=== PATIENT | female | born 1930 | race Caucasian/White ===

== ENCOUNTER 2017-07-17 11:44 | Day surgery (SDC) | payer MEDICARE, OTHER ==
[~2017-07-17] VITALS: Ht 157.5 cm; Wt 44.6 kg
[2017-07-17] VITALS (8 sets, daily range): BP systolic 114–141; BP diastolic 62–85; PULSE 61–94; RESP 15–16; TEMP 97.8–98; O2SAT 89–98
[2017-07-17] MEDS ORDERED: CHLORHEXIDINE GLUCONATE 2 % 1 PACK (2 CLOTHS) TOPICAL SCH (12:45)
[2017-07-17] MEDS ORDERED: MUPIROCIN 2% OINT 1 APPLIC/GM SYR NASAL SCH (12:45)
[2017-07-17] MEDS ORDERED: METOPROLOL TARTRATE 25 MG TAB PO PRN (12:45)
[2017-07-17] MEDS ORDERED: CHLORHEXIDINE GLUCONATE 2 % 1 PACK (2 CLOTHS) TOPICAL PRN (12:45)
[2017-07-17] MEDS ORDERED: POVIDONE IODINE 5% (ANTISEPSIS KIT) 4 APPLICATIONS EACH NARE PRN (12:45)
[2017-07-17] MEDS ORDERED: VANCOMYCIN 1000 MG/NS 250 ML IV SCH ×2 (12:45)
[2017-07-17] MEDS ORDERED: POVIDONE IODINE 5% (ANTISEPSIS KIT) 4 APPLICATIONS EACH NARE SCH (12:45)
[2017-07-17] MEDS ORDERED: LACTATED RINGER'S 1000 ML IV PRN (12:45)
[2017-07-17] MEDS ORDERED: SODIUM CHLORID 0.9% 500 ML IV PRN (12:45)
[2017-07-17] MEDS ORDERED: NS 1000 ML IV SCH (12:45)
[2017-07-17] MEDS ORDERED: NO Heparin, Lovenox, Coumadin at least 12 hours prior to procedure. PRN (12:45)
[2017-07-17] MEDS ORDERED: INSULIN HUMAN REGULAR 1,000 UNITS/10 ML VIAL SQ PRN (12:45)
[2017-07-17] MEDS ORDERED: ASPI325T PO (12:52)
[2017-07-17] MEDS ORDERED: METO25TA6 PO (12:52)
[2017-07-17] MEDS ORDERED: LEVO25TA4 PO (12:52)
[2017-07-17] MEDS ORDERED: OMEP20TA PO (12:52)
[2017-07-17] MEDS ORDERED: LISI2.5T3 PO (12:52)
[2017-07-17] MEDS ORDERED: RANI150T PO (12:52)
[2017-07-17 13:20] LABS: AUTOMATED NEUTROPHIL # 3.5 TH/MM3 (1.8-7.7); BASOPHIL % 0.7 % (0.0-2.0); EOSINOPHIL # 0.3 TH/MM3 (0-0.4); EOSINOPHIL % 3.9 % (0.0-4.0); HEMATOCRIT 35.5 % (35.0-46.0); HEMO FLAGS DIFF FINAL; LYMPHOCYTE # 2.4 TH/MM3 (1.0-4.8); MEAN CELL VOLUME 100.4 FL (80.0-100.0); MEAN CORPUSCULAR HEMOGLOBIN 32.9 PG (27.0-34.0); MEAN CORPUSCULAR HGB CONC 32.7 % (32.0-36.0); MONO % 9.2 % (0.0-8.0); NEUT % 51.2 % (16.0-70.0); PLATELET COUNT 167 TH/MM3 (150-450); RED BLOOD COUNT 3.54 MIL/MM3 (4.00-5.30); RED CELL DISTRIBUTION WIDTH 14.2 % (11.6-17.2); WHITE BLOOD COUNT 6.9 TH/MM3 (4.0-11.0)
[2017-07-17 13:31] LABS: APTT (PATIENT) 25.9 SEC (24.3-30.1); PROTHROMBIN TIME - PATIENT 11.2 SEC (9.8-11.6)
[2017-07-17 13:42] LABS: BICARBONATE 23.9 MEQ/L (21.0-32.0); POTASSIUM 5.1 MEQ/L (3.5-5.1)
[2017-07-17] MEDS ORDERED: MIDAZOLAM HCL 2 MG/2 ML VIAL ONE (13:50)
[2017-07-17] MEDS ORDERED: PROPOFOL 200 MG/20 ML AMP ONE (13:50)
[2017-07-17] MEDS ORDERED: LIDOCAINE HCL 2% 50 ML VIAL ONE (13:58)
[2017-07-17] MEDS ORDERED: LIDOCAINE HCL 2% 100 MG/5 ML SYRINGE ONE (14:00)
[2017-07-17] MEDS ORDERED: PHENYLEPHRINE HCL 10 MG/ML VIAL ONE (14:32)
--- NOTE | 2017-07-17 15:10 | CATHPROC ---
[facility] HIS Report Study Information Study Number Admission Scheduled Start Study Start [id number] Jul 17 2017 11:44AM 07/17/2017 Jul 17 2017 1:41PM [place] Service Cardiac Pacer/ICD Admit Source Facility Department Other [facility] Physician and Clinical Staff Initial MD Gates, Mckinley Technical Account Representative Esther Amaro RCIS Other Anesthesia, CENTRIFUGAL SCREEN TENDER Recorder Radha Van,RN Scrub Alejo Miller,RT(R) Procedures Performed Procedure Location (Site) Vessel Name Lead Insertion Venogram Subclav. Vein (Lft Subclavian Vein Equipment Time Hand Turner Description Size Mfg Part Number Used/Scraped DEFIBRILLATOR, IMPERIA 7 VR-T 14:46 BIOTRONIK [id number] Used DX MRI 14:31 BIOTRONIK LEAD, PLEXA PRO-MRI DF 65/15 [id number] Used INTRODUCER SET, [id number] 14:24 [employer] FR 5 Used MICROPUNCTURE *[id number] 13:47 MEDLINE [employer] SUTURE, STRIP PLUS 1/2" * Used *[id number] 13:47 MEDLINE PACER ADHESIVE, MASTISOL 2/3CC 2/3CC 0523-48 Used 13:47 MEDLINE PACER GILL, LIMB * 2530 *[id number] Used [id number] 13:47 MEDLINE PACER PACK, PACER CUSTOM * Used *[id number] 13:47 MEDLINE PACER PEN, SKIN DUAL W/ RULER * Used *[id number] 14:28 [facility] [employer] PACER SAFE SHEATH, FR8, 13CM FR 8 [id number] Used 14:19 [employer] OMNIPAQUE, 350 MG, 50ML 50ML [id number] Used [id number] *[id number] SUTURE, 3-0 VICRYL [SH] ([id number]) SUTURE, 3-0 VICRYL [SH] ([id number]) SUTURE, 4-0 MONOCRYL [PS2] (Y496G) [id number] 13:47 [facility],WARM AIR CCL * Used *[id number] [facility], ELECTROSURGICAL 13:47 * [id number] *[id number] Used SURGICAL GROUNDING ORANGE [id number] 13:47 [employer] [facility]. / * Used *75842 Equipment Model, Serial, Lot Number and Expiration Data Description Model Number Serial Number Lot Number Expiration Date DEFIBRILLATOR, IMPERIA 7 VR-T [id number] 05-01-2018 DX MRI LEAD, PLEXA PRO-MRI DF 65/15 [id number] 07-01-2019 History: Allergies Allergy Reaction Penicillins Sulfa (Sulfonamide Antibiotics) tetanus toxoid, adsorbed History: Risk Factors Hypertension Previous Heart Failure Yes Yes Labs Hgb (g/dl) Hct (%) RBC (MIL/MM3) WBC (l/cumm) Platelets (thousands) 11.60-17.00 35.00-51.00 4.00-5.90 4.00-11.00 150.00-450.00 11.0 35 3.5 6.9 167 Glucose (mg/dl) BUN (mg/dl) Creatinine (mg/dl) BUN:Creatinine (1:x) 74.00-106.00 7.00-18.00 0.50-1.30 10.00-20.00 82 20 0.9 22.2 Na (meq/l) K (meq/l) 136.00-145.00 3.50-5.10 140 5.1 INR (PTT:PT) 0.90-1.10 1 Medication Medication Total Dose (Bolus/Oral) Medication Total Dosage/Unit 2% XYLOCAINE 50 mL Medications (Bolus/Oral) Medication Time Given Dosage/Unit Administered By Reason 2% XYLOCAINE 07/17/2017 2:18:00 PM 50 mL Anesthesia, CENTRIFUGAL SCREEN TENDER 50 mL 2% XYLOCAINE given by Anesthesia, CENTRIFUGAL SCREEN TENDER in Left upper chest via Subcutaneous. Ordered by Mckinley Gates. Medication (Drip) Medication Time Given Dosage/Unit Concentration/Unit Diluent (ml) Solution VANCOMYCIN DRIP 07/17/2017 2:00:00 PM 1 g 1 g VANCOMYCIN DRIP given by Anesthesia, CENTRIFUGAL SCREEN TENDER via Peripheral IV. Ordered by Mckinley Gates. Reason: As per physicians verbal order. Initial Case Assessment Cardiovascular HR Rhythm NIBP Chest Pain 80 sr 126/60 0 Edema Present Skin color Skin None Normal Warm Dry Circulatory - Right Pulses Radial 3 Scale (0,1,2,3,4,d) Circulatory - Left Pulses Radial 3 Scale (0,1,2,3,4,d) Circulatory - Lower Extremities Color Lower Right Color Lower Left Normal Normal Neurological State Oriented to time-place- Alert Moves all extremities person Respiration - General Respiration Rate SpO2 (%) O2 (lpm) (B/min) 20 97 6 Chronological Log Time Study Chronological Log 13:41:03 Patient arrived via Bed. 13:41:04 Patient Name, D.O.B, / Armband Verified By R.N. 13:41:04 Consent signed by the physician and the patient and verified by the [facility] staff. 13:41:05 Pre-op and post- op instructions given; patient acknowledges understanding of instructions. 13:41:06 Verbal Stimulation=2 Physical Stimulation=2 Airway=2 Respiration=2 TOTAL=8. (0=absent, 1=li mited, 2=present) 13:43:18 Anesthesia at bedside. Assumes care of patient. 13:43:20 Patient has been NPO for More than 6Hrs. 13:43:21 Skin Breakdown- none per pt 13:43:21 Patient Warmer Placed on the Table. 13:43:22 Disposable Defibrillator Pads Placed On Patient. 13:43:22 Roger Prominences Protected 13:43:24 A # 20 IV was noted in the Antecubital (left). Grade = 0 0.9 ns kvo 13:43:25 A # 20 IV was noted in the Antecubital (right). Grade = 0 0.9ns kvo 13:43:25 History and physical on the chart or being dictated. 1 g VANCOMYCIN DRIP given by Anesthesia, CENTRIFUGAL SCREEN TENDER via Peripheral IV. Ordered by Mckinley Gates. Reaso n: As per 14:00:00 physicians verbal order. 14:00:00 2% CHLORHEXIDINE GLUCONATE WASH AND NASAL SWIPE DONE PRIOR TO PROCEDURE. 14:00:00 Bovie ground pad applied to: right thigh 14:01:52 Upper Chest Prepped Times Two. 14:03:10 Reference ECG taken Assessment: Initial Case, HR=80 BPM, Rhythm=sr, QWCC=798/60 mmhg, Chest Pain=0, Edema=None, Col or=Normal, Skin = Warm, Dry Right Pulses: Radial=3 Left Pulses: Radial=3 14:03:15 Lower Right Extremities: Color=Normal Lower Left Extremities: Color=Normal Neurological: State=Alert, Ox3, CASTANEDA Respiration: Resp=20 B/min, SpO2=97 %, O2=6 lpm 14:08:17 paged First Sponge And Instrument Count Done by Esther Amaro RCIS. 14:09:27 Hypo's: 3 hypo's, Sponges: 30 sponges, Bovie/scratch: 2 bovie/scratch Sutures: 5, Blades: 2, Instruments: 26, Syveck Patches: 0 14:13:13 MD arrived. Time Out. Correct patient, procedure, procedure equipment, site and side verified with physicia n present. Time 14:16:00 concurred by MD, individual staff and CENTRIFUGAL SCREEN TENDER. Time Out #2 - Consents verified, patient in correct position, all results are labled and displa yed, safety precautions 14:16:37 taken, antibiotics administered. Time out concurred by MD, individual staff and CENTRIFUGAL SCREEN TENDER in procedu re 14:16:52 Case Start 14:18:00 50 mL 2% XYLOCAINE given by Anesthesia, CENTRIFUGAL SCREEN TENDER in Left upper chest via Subcutaneous. Ordered by Mckinley Gates. 14:18:59 The Subclav. Vein (Lft was manually injected with 10 cc's of contrast. OMNIPAQUE, 350 MG, 5 0ML 50ML used. 14:20:50 Vascular access was obtained in the Subclav. Vein (Lft. micrpuncture A INTRODUCER SET, MICROPUNCTURE FR 5 was advanced into the Subclav. Vein (Lft using the Kristen Ramosdinger 14:24:16 technique. 14:25:28 Surgical Incision Made. 14:27:41 A pocket was created at the L Upper Chest. 14:27:52 A SAFE SHEATH, FR8, 13CM FR 8 was advanced into the Subclav. Vein (Lft using the Modified S eldinger technique. 14:28:26 Wire inserted 14:30:56 A LEAD, PLEXA PRO-MRI DF 65/15 was inserted and positioned in the RV. 14:38:59 Lead placement verified under fluoroscopy 14:39:01 The RV lead impedance and threshold being tested. 14:41:31 The RV lead was sutured to the fascia. 14:45:30 A DEFIBRILLATOR, IMPERIA 7 VR-T DX MRI was connected and placed in the pocket. Second Sponge And Instrument Count Done by Esther Amaro RCIS. 14:48:49 Hypo's: 3 hypo's, Sponges:30 sponges, Bovie/scratch: 2 bovie/scratch Sutures: 5, Blades: 2, Instruments: 26, Syveck Patches: 0 14:55:39 Implant Procedure was performed. 14:55:45 A ICD Implant . (Single) 14:56:33 The pocket was closed. 14:56:51 PACU called. Spoke to Deonte 15:02:39 A 2 Joul DFT was performed. 15:03:16 The DFT was Success at 20 Joules, 67 Ohms lead impedance and 4 ms charge time. 15:04:57 Case End Final Sponge And Instrument Count Done by Esther Amaro RCIS. 15:05:23 Hypo's:3 hypo's, Sponges: sponges, Bovie/scratch: bovie/scratch Sutures: 5, Blades: 2, Instruments: 26, Syveck Patches: 0 15:06:59 Steri-strips and a sterile dressing applied to site. 15:15:00 A sling was placed on the affected arm. 15:24:00 Patient moved to stretcher End Study - Contrast Media Used In Study Contrast Total Opened (mL) Total Used (mL) Total Wasted (mL) Unspecified 0 0 0 End Study - Maximum Contrast Load Max Contrast Load (mL) 244.4 End Study - Radiation Exposure Fluoro Time (minutes) 5.3 End Study - Patient Disposition Complications Transferred To Interventional Outcome No Telemetry Bed successful
[2017-07-17] MEDS ORDERED: DO NOT ADM ANY ANTICOAGULANT DRUGS PRN (15:30)
--- NOTE | 2017-07-17 15:34 | MP ---
cc: ANT GERBER M.D. DATE OF SURGERY: 07/17/2017 PROCEDURE Single-chamber AICD implantation via the left subclavian vein. INDICATIONS Primary prevention of sudden cardiac , severe nonischemic cardiomyopathy. OPERATIVE NOTES The patient was brought to the operating suite in a fasting state after having signed informed consent. The left upper chest was prepped and draped as per policy and anesthetized with 1% lidocaine. Central venous access was obtained via the left subclavian vein after administration of contrast through a left arm peripheral IV. A transverse incision was made inferior to the left clavicle and using blunt dissection a subcutaneous pocket was formed down to the pectoralis fascia. Over the guidewire an 8 Estonian sheath was placed and through this sheath a ventricular active fixation lead was introduced and its tip positioned in the right ventricular apex where good current of injury, stimulation threshold (0.8 volts) and sensitivity (11.8 mV) were demonstrated. The lead also has atrial sensing capability and the P-wave was measured at 3.2 mV. The lead was secured into place using 2-0 silk ties down to the pectoralis fascia. The lead was then connected to the AICD generator which is a [employer] Iperia device. The lead and the generator were placed back into the subcutaneous pocket. The generator was secured into place using 2-0 silk tie down to the pectoralis muscle tissue. Closure of the incision line was done using 3-0 Vicryl interrupted stitches in 2-3 layers to close the subcutaneous tissue and then 4-0 Monocryl running stitch to close the subcuticular tissue. Overlapping Steri-Strips and a dressing were applied. There were no apparent immediate complications. Testing of the device was also performed. Ventricular fibrillation was induced. The patient was successfully rescued with a 20 joule shock after a charge time of 4.1 seconds. CONCLUSIONS Successful single chamber (with atrial sensing capability) AICD implantation via the left subclavian vein using a Biotronik Iperia AICD generator. MD JUAN MANUEL Hartman/THEODORA /3:09 PM /3:25 PM [facility] SYSTEM[facility]
[2017-07-17] MEDS ORDERED: ONDANSETRON HCL 4 MG/2 ML VIAL IV PUSH ONE (19:00)
[2017-07-18] VITALS (12 sets, daily range): BP systolic 123–146; BP diastolic 72–90; PULSE 76–105; RESP 16–22; TEMP 98.5–99.2; O2SAT 91–100
--- NOTE | 2017-07-18 07:32 | RADRPT ---
EXAM DATE/TIME: 07/18/2017 07:15 [place] COMPARISON: No previous studies available for comparison. INDICATIONS : Rule out pneumothorax. MEDICAL HISTORY : None. SURGICAL HISTORY : Pacemaker. ENCOUNTER: Initial ACUITY: 1 day PAIN SCORE: 4/10 LOCATION: Left chest FINDINGS: Portable AP view of the chest demonstrates a normal-sized cardiac silhouette with calcification of th e aorta. Single lead left chest wall cardiac pacing device/AICD is present. No effusion, consolidatio n, or pneumothorax is identified. Possible calcified granuloma is in the left lung apex. The bones an d soft tissues demonstrate no acute finding. CONCLUSION: No acute cardiopulmonary abnormality is identified. No pneumothorax is visualized. Carlos Farnsworth MD on July 18, 2017 at 7:29 Board Certified Radiologist. This report was verified electronically.
--- NOTE | 2017-07-18 08:27 | PD.CARD.PN ---
Subjective Subjective Remarks Mild to moderate incisional pain. No dyspnea. Objective Medications Current Medications Medications (Trade) Dose Ordered Sig/Ady Route Start Time Stop Time Status Last Admin Lactated Ringer's 1,000 ml @ 30 mls/hr Q24H PRN IV 07/17/17 12:45 07/20/17 12:44 Sodium Chloride 500 ml @ 30 mls/hr [id number] PRN IV 07/17/17 12:45 07/20/17 12:44 (Lopressor) 25 mg LITERACY COORDINATOR PRN PO 07/17/17 12:45 07/20/17 12:44 (Betadine 5% Antisepsis Kit) 1 applic LITERACY COORDINATOR PRN EACH NARE 07/17/17 12:45 07/20/17 12:44 (Chlorhexidine 2% Cloth) 3 pack LITERACY COORDINATOR PRN TOPICAL 07/17/17 12:45 07/20/17 12:44 07/17/17 12:30 (NovoLIN R INJ) See Protocol Table ... LITERACY COORDINATOR PRN SQ 07/17/17 12:45 07/20/17 12:44 Miscellaneous Information NO Heparin, Loven... UNSCH PRN .XX 07/17/17 12:45 07/21/17 12:44 Sodium Chloride 1,000 ml @ 30 mls/hr Q24H IV 07/17/17 12:45 07/17/17 18:12 Vancomycin HCl 1000 mg/Sodium Chloride 250 ml @ 250 mls/hr LITERACY COORDINATOR IV 07/17/17 12:45 07/20/17 12:44 07/17/17 14:00 (Betadine 5% Antisepsis Kit) 2 applic LITERACY COORDINATOR EACH NARE 07/17/17 12:45 07/20/17 12:44 (Bactroban Nasal 2% Oint) 1 applic LITERACY COORDINATOR NASAL 07/17/17 12:45 07/20/17 12:44 07/17/17 13:00 (Chlorhexidine 2% Cloth) 3 pack LITERACY COORDINATOR TOPICAL 07/17/17 12:45 07/20/17 12:44 07/17/17 13:00 Miscellaneous Information ALL NURSING DEPARTME... UNSCH PRN .XX 07/17/17 15:30 07/18/17 15:29 Vital Signs / I&O Vital Signs Date Time Temp Pulse Resp B/P (MAP) Pulse Ox O2 Delivery O2 Flow Rate FiO2 07/18/17 06:00 82 07/18/17 05:00 89 07/18/17 04:00 84 07/18/17 03:30 98.5 93 16 123/72 (89) 100 07/18/17 03:00 78 07/18/17 02:00 79 07/18/17 01:00 89 07/18/17 00:00 76 07/17/17 23:00 82 07/17/17 23:00 98.0 88 16 120/74 (89) 98 07/17/17 22:00 82 07/17/17 21:00 82 07/17/17 20:00 98.0 94 16 119/71 (87) 89 07/17/17 20:00 86 07/17/17 19:00 82 07/17/17 17:47 98.0 79 16 114/62 (79) 91 07/17/17 17:30 76 07/17/17 15:33 98 Room Air 07/17/17 12:30 98.0 75 15 141/85 (103) 95 I/O 07/17/17 07/17/17 07/17/17 07/18/17 07/18/17 07/18/17 07:00 15:00 23:00 07:00 15:00 23:00 Intake Total 120 ml 240 ml Output Total 500 ml Balance 120 ml -260 ml Intake Oral 120 ml 240 ml Output Urine Total 500 ml # Bowel Movements 0 Physical Exam ICD site clean, dry, intact, no hematoma or tenderness. Minimal ecchymosis. Laboratory Laboratory Tests Test 07/17/17 12:48 White Blood Count 6.9 TH/MM3 Red Blood Count 3.54 MIL/MM3 Hemoglobin 11.6 GM/DL Hematocrit 35.5 % Mean Corpuscular Volume 100.4 FL Mean Corpuscular Hemoglobin 32.9 PG Mean Corpuscular Hemoglobin Concent 32.7 % Red Cell Distribution Width 14.2 % Platelet Count 167 TH/MM3 Mean Platelet Volume 8.7 FL Neutrophils (%) (Auto) 51.2 % Lymphocytes (%) (Auto) 35.0 % Monocytes (%) (Auto) 9.2 % Eosinophils (%) (Auto) 3.9 % Basophils (%) (Auto) 0.7 % Neutrophils # (Auto) 3.5 TH/MM3 Lymphocytes # (Auto) 2.4 TH/MM3 Monocytes # (Auto) 0.6 TH/MM3 Eosinophils # (Auto) 0.3 TH/MM3 Basophils # (Auto) 0.0 TH/MM3 CBC Comment DIFF FINAL Differential Comment Prothrombin Time 11.2 SEC Prothromb Time International Ratio 1.0 RATIO Activated Partial Thromboplast Time 25.9 SEC Blood Urea Nitrogen 20 MG/DL Creatinine 0.90 MG/DL Random Glucose 82 MG/DL Calcium Level 9.2 MG/DL Sodium Level 140 MEQ/L Potassium Level 5.1 MEQ/L Chloride Level 108 MEQ/L Carbon Dioxide Level 23.9 MEQ/L Anion Gap 8 MEQ/L Estimat Glomerular Filtration Rate 59 ML/MIN Imaging Last 24 hours Impressions Chest X-Ray 07/18/17 0000 Signed Impressions: Service Date/Time: Tuesday, July 18, 2017 07:15 - CONCLUSION: No acute cardiopulmonary abnormality is identified. No pneumothorax is visualized. Carlos Farnsworth MD Assessment and Plan Problem List: (1) S/P implantation of automatic cardioverter/defibrillator (AICD) ICD Codes: Z95.810 - Presence of automatic (implantable) cardiac defibrillator Status: Acute Plan: Stable overnight. ICD site OK. ICD function OK by repeat interrogation this morning. Post op CXR without pneumothorax. To discharge today, same home medications plus Levaquin 250 mg qd for 6 days and PRN Vicodin. One week f/u for incision and ICD recheck. (2) Non-ischemic cardiomyopathy ICD Codes: I42.8 - Other cardiomyopathies Status: Chronic Plan: Compensated. Stable. No CHF. Continue beta isela, JAMES-I. Code Status full code Discussed Condition With patient Mckinley Gates MD Jul 18, 2017 08:27
[2017-07-18] MEDS ORDERED: LEVA250T14 PO (08:37)
[2017-07-18] MEDS ORDERED: HYDR-3111 PO (08:37)
--- NOTE | 2017-07-18 19:56 | EKG ---
Date Performed: 07/17/2017 Time Performed: 13:51:14 PTAGE: 87 years EKG: Quality of EKG not interpretable due to marked baseline abnormalities in all of the limb le ads, precordial leads shows intraventricular conduction disturbance. Recommend repeat EKG of better q uality.(patient is discharged) Abnormal ECG NO PREVIOUS TRACING DOCTOR: Justice Rosario Interpretating Date/Time 07/18/2017 19:54:42
== END 2017-07-18 11:28 | disposition home or self-care (01) ==
LOC: HDOC 11:44 → HDIC 11:44 → HCIN 17:31 → HDOC 07-18 11:28
PROVIDERS: ATTEND Internal Medicine Cardiovascular Disease
DX: I50.9 Heart failure, unspecified (principal); I47.2 Ventricular tachycardia; I42.8 Other cardiomyopathies; I44.2 Atrioventricular block, complete; I10 Essential (primary) hypertension; R06.00 Dyspnea, unspecified; I44.7 Left bundle-branch block, unspecified; Z79.82 Long term (current) use of aspirin
CPT/HCPCS: 00530; 33249; 71010; 80048; 85025; 85610; 85730; 93005; 93641; C1722; C1777; J2250; J2370; J2405; J3010; J3370; J7030; J7050